=== PATIENT | male | born 2000 | race American Indian/Alaskan Native ===

== ENCOUNTER 2022-04-22 16:45 | Emergency (ER) | payer SELFPAY ==
[2022-04-22 17:00] VITALS: BP 122/53
== END 2022-04-23 03:36 | disposition left against medical advice (07) ==
LOC: ED 16:45
DX: Z20.2 Contact with and (suspected) exposure to infections with a predominantly sexual mode of transmission (principal); Z53.21 Procedure and treatment not carried out due to patient leaving prior to being seen by health care provider